=== PATIENT | female | born 1990 | race Caucasian/White ===

== ENCOUNTER 2017-09-16 20:02 | Emergency (ER) | payer OTHER ==
[~2017-09-16] VITALS: Ht 162.6 cm; Wt 66.0 kg
[~2017-09-16 20:02] MED LIST: BENZ100 PO; CIPR500T4 PO
[2017-09-16 20:31] VITALS: BP 106/56; PULSE 76; RESP 16; TEMP 98.6; O2SAT 99
--- NOTE | 2017-09-16 20:45 | PD ---
HPI Chief Complaint: Psychiatric Symptoms Time Seen by Provider: 20:34 Travel History International Travel<30 days: No Contact w/Intl Traveler<30days: No Traveled to known affect area: No History of Present Illness HPI 27-year-old female presents to the emergency room under [place] initiated by her family. Patient states her mother is paranoid schizophrenic and believes that she is going to kill herself. Patient broke up with her boyfriend last night and has been depressed. She denies suicidal or homicidal ideation at this time. States she is just depressed because she broke up with her boyfriend and her family is overreacting. Patient initially denies drug use but states she did use cocaine a few nights ago and that we'll probably show up in her drug test. Denies any medical complaints. No chronic medical conditions. Only takes control. PFSH Past Medical History ?: Unknown Social History Alcohol Use: Yes (OCC) Tobacco Use: Yes (2PPD) Substance Use: Yes (COCAINE) Allergies-Medications (Allergen,Severity, Reaction): Coded Allergies: penicillin G (Unverified Allergy, Intermediate, RASH, 09/16/17) Reported Meds & Prescriptions Reported Meds & Active Scripts Active No Active Prescriptions or Reported Medications Review of Systems Except as stated in HPI: all other systems reviewed are Neg Physical Exam Narrative GENERAL: Well-nourished, well-developed female in no acute distress. Afebrile. Ambulatory. SKIN: Focused skin assessment warm/dry. HEAD: Normocephalic. EYES: No scleral icterus. No injection or drainage. NECK: Supple, trachea midline. No JVD or lymphadenopathy. CARDIOVASCULAR: Regular rate and rhythm without murmurs, gallops, or rubs. RESPIRATORY: Breath sounds equal bilaterally. No accessory muscle use. PSYCHIATRIC: No delusional thought processes. No hallucinations. Depressed mood. Normal affect. Data Data Last Documented VS Vital Signs Date Time Temp Pulse Resp B/P (MAP) Pulse Ox O2 Delivery O2 Flow Rate FiO2 09/17/17 15:30 09/17/17 10:44 62 18 100 Room Air 09/16/17 20:31 98.6 Orders Orders Complete Blood Count With Diff (09/16/17 20:37) Comprehensive Metabolic Panel (09/16/17 20:37) Ed Urine Pregnancytest Poc (09/16/17 20:37) Psych Screen (09/16/17 20:37) Drug Screen, Random Urine (09/16/17 20:37) Potassium Chloride (Kcl) (09/16/17 22:15) Nicotine 14 Mg Patch.24 Hr (Habitrol 14 (09/16/17 22:30) Hydroxyzine Pamoate (Vistaril) (09/16/17 22:30) Diet Regular Basic (09/17/17 Breakfast) Diet Regular Basic (09/17/17 Lunch) Ed Discharge Order (09/17/17 14:55) Labs Laboratory Tests Test 09/16/17 20:49 White Blood Count 5.0 TH/MM3 Red Blood Count 4.12 MIL/MM3 Hemoglobin 13.6 GM/DL Hematocrit 40.2 % Mean Corpuscular Volume 97.5 FL Mean Corpuscular Hemoglobin 33.1 PG Mean Corpuscular Hemoglobin Concent 33.9 % Red Cell Distribution Width 12.3 % Platelet Count 260 TH/MM3 Mean Platelet Volume 8.0 FL Neutrophils (%) (Auto) 52.8 % Lymphocytes (%) (Auto) 33.7 % Monocytes (%) (Auto) 10.5 % Eosinophils (%) (Auto) 2.6 % Basophils (%) (Auto) 0.4 % Neutrophils # (Auto) 2.6 TH/MM3 Lymphocytes # (Auto) 1.7 TH/MM3 Monocytes # (Auto) 0.5 TH/MM3 Eosinophils # (Auto) 0.1 TH/MM3 Basophils # (Auto) 0.0 TH/MM3 CBC Comment DIFF FINAL Differential Comment Blood Urea Nitrogen 6 MG/DL Creatinine 0.90 MG/DL Random Glucose 102 MG/DL Total Protein 7.3 GM/DL Albumin 3.7 GM/DL Calcium Level 8.8 MG/DL Alkaline Phosphatase 46 U/L Aspartate Amino Transf (AST/SGOT) 10 U/L Alanine Aminotransferase (ALT/SGPT) 17 U/L Total Bilirubin 0.7 MG/DL Sodium Level 137 MEQ/L Potassium Level 3.2 MEQ/L Chloride Level 104 MEQ/L Carbon Dioxide Level 26.5 MEQ/L Anion Gap 7 MEQ/L Estimat Glomerular Filtration Rate 75 ML/MIN Urine Opiates Screen NEG Urine Barbiturates Screen NEG Urine Amphetamines Screen NEG Urine Benzodiazepines Screen NEG Urine Cocaine Screen POS Urine Cannabinoids Screen POS MDM Medical Decision Making Medical Screen Exam Complete: Yes Emergency Medical Condition: Yes Medical Record Reviewed: Yes Differential Diagnosis Drug use, substance abuse, substance use mood disorder, schizophrenia, depression, anxiety Narrative Course 27-year-old female presents to the emergency room under exparte order with [employer]. Patient states her family's overreacting to her recent depression. She is depressed because she broke up with her boyfriend yesterday. She denies suicidal or homicidal ideation at this time. No chronic medical conditions. Denies any medical complaints. Patient signed out to nighttime provider pending labs. Scripts No Active Prescriptions or Reported Meds Condition: Sindy Capps Sep 16, 2017 20:45
[2017-09-16 21:36] LABS: AUTOMATED NEUTROPHIL # 2.6 TH/MM3 (1.8-7.7); BASOPHIL % 0.4 % (0.0-2.0); EOSINOPHIL # 0.1 TH/MM3 (0-0.4); EOSINOPHIL % 2.6 % (0.0-4.0); HEMATOCRIT 40.2 % (35.0-46.0); HEMO FLAGS DIFF FINAL; LYMPH % 33.7 % (9.0-44.0); LYMPHOCYTE # 1.7 TH/MM3 (1.0-4.8); MEAN CELL VOLUME 97.5 FL (80.0-100.0); MEAN CORPUSCULAR HEMOGLOBIN 33.1 PG (27.0-34.0); MEAN CORPUSCULAR HGB CONC 33.9 % (32.0-36.0); MONO % 10.5 % (0.0-8.0); NEUT % 52.8 % (16.0-70.0); PLATELET COUNT 260 TH/MM3 (150-450); RED BLOOD COUNT 4.12 MIL/MM3 (4.00-5.30); RED CELL DISTRIBUTION WIDTH 12.3 % (11.6-17.2)
[2017-09-16 21:45] LABS: ANION GAP 7 MEQ/L (5-15); AST (GOT) 10 U/L (15-37); BICARBONATE 26.5 MEQ/L (21.0-32.0); BLOOD UREA NITROGEN 6 MG/DL (7-18); CHLORIDE 104 MEQ/L (98-107); GLOMERULAR FILTRATION RATE 75 ML/MIN (>89); POTASSIUM 3.2 MEQ/L (3.5-5.1); SODIUM (NA) 137 MEQ/L (136-145)
[2017-09-16 21:47] LABS: ALT (GPT) 17 U/L (10-53)
[2017-09-16 21:49] LABS: ALKALINE PHOSPHATASE 46 U/L (45-117); TOTAL BILIRUBIN ADULT 0.7 MG/DL (0.2-1.0)
[2017-09-16] MEDS ORDERED: POTASSIUM CHLORIDE 20 MEQ CONTROLLED RELEASE TAB PO ONE (22:15)
--- NOTE | 2017-09-16 22:15 | PD ---
Physical Exam Date Seen by Provider: Sep 16, 2017 Time Seen by Provider: 22:13 Data Data Last Documented VS Vital Signs Date Time Temp Pulse Resp B/P (MAP) Pulse Ox O2 Delivery O2 Flow Rate FiO2 09/16/17 20:31 98.6 76 16 106/56 (73) 99 Orders Orders Complete Blood Count With Diff (09/16/17 20:37) Comprehensive Metabolic Panel (09/16/17 20:37) Ed Urine Pregnancytest Poc (09/16/17 20:37) Psych Screen (09/16/17 20:37) Drug Screen, Random Urine (09/16/17 20:37) Potassium Chloride (Kcl) (09/16/17 22:15) Labs Laboratory Tests Test 09/16/17 20:49 White Blood Count 5.0 TH/MM3 Red Blood Count 4.12 MIL/MM3 Hemoglobin 13.6 GM/DL Hematocrit 40.2 % Mean Corpuscular Volume 97.5 FL Mean Corpuscular Hemoglobin 33.1 PG Mean Corpuscular Hemoglobin Concent 33.9 % Red Cell Distribution Width 12.3 % Platelet Count 260 TH/MM3 Mean Platelet Volume 8.0 FL Neutrophils (%) (Auto) 52.8 % Lymphocytes (%) (Auto) 33.7 % Monocytes (%) (Auto) 10.5 % Eosinophils (%) (Auto) 2.6 % Basophils (%) (Auto) 0.4 % Neutrophils # (Auto) 2.6 TH/MM3 Lymphocytes # (Auto) 1.7 TH/MM3 Monocytes # (Auto) 0.5 TH/MM3 Eosinophils # (Auto) 0.1 TH/MM3 Basophils # (Auto) 0.0 TH/MM3 CBC Comment DIFF FINAL Differential Comment Blood Urea Nitrogen 6 MG/DL Creatinine 0.90 MG/DL Random Glucose 102 MG/DL Total Protein 7.3 GM/DL Albumin 3.7 GM/DL Calcium Level 8.8 MG/DL Alkaline Phosphatase 46 U/L Aspartate Amino Transf (AST/SGOT) 10 U/L Alanine Aminotransferase (ALT/SGPT) 17 U/L Total Bilirubin 0.7 MG/DL Sodium Level 137 MEQ/L Potassium Level 3.2 MEQ/L Chloride Level 104 MEQ/L Carbon Dioxide Level 26.5 MEQ/L Anion Gap 7 MEQ/L Estimat Glomerular Filtration Rate 75 ML/MIN Urine Opiates Screen NEG Urine Barbiturates Screen NEG Urine Amphetamines Screen NEG Urine Benzodiazepines Screen NEG Urine Cocaine Screen POS Urine Cannabinoids Screen POS MDM Supervised Visit with HEMANTH: No Narrative Course This patient was initially evaluated by Sindy Styles PA-C. Please see her note for those details. Patient was signed out to me with lab work pending. No concerning abnormalities of the CBC. Potassium 8.0. Tox screen positive for cocaine and cannabinol lights. My exam the patient is alert, oriented. She is occasionally tearful. She denies somatic complaints. She was administered 40 mEq potassium chloride by mouth. She is medically cleared for psychiatric evaluation. Please see psych notes for disposition. Scripts No Active Prescriptions or Reported Meds Condition: Ilana Yusuf Sep 16, 2017 22:15
[2017-09-16] MEDS ORDERED: NICOTINE 14 MG/24 HR PATCH T-DERMAL ONE (22:30)
[2017-09-17 00:24] VITALS: BP_SYST 114; BP_SYST 117; BP_DIAS 54; BP_DIAS 58; PULSE 66; PULSE 91; RESP 18; RESP 20
[2017-09-17 05:31] VITALS: BP 100/55; PULSE 65; RESP 17; O2SAT 99
[2017-09-17 10:44] VITALS: BP 124/66; PULSE 62; RESP 18; O2SAT 100
--- NOTE | 2017-09-17 14:14 | PD ---
History of Present Illness Chief Complaint: Psychiatric Symptoms Time Seen by Provider: 14:00 Travel History International Travel<30 Days: No Contact w/Intl Traveler<30days: No Known affected area: No Legal Status Legal Status: [place] Parte Galvan Act Signed By: TAE Galvan Act Comment: [facility]09/16/17@[id number] History of Present Illness: 27-year-old female brought in under an ex parte order for evaluation. Apparently the patient has a history of drug abuse. She admits to this. The ex parte also indicates she has an alcohol problem and that she cuts herself and drives recklessly. She has reportedly spoken of suicide on multiple occasions. The ex parte also describes reckless financial dealings, problematic relationships, dangerous to herself, and previous treatment. Since her arrival in this emergency department, the patient has been calm, pleasant and cooperative. She adamantly denies any suicidal or homicidal ideation, plan or intent at this time. She does admit to the recreational use of cocaine, alcohol, etc. However, she feels she is capable of caring for herself, has a motor vehicle locally and a debit card. She is reportedly not homeless, capable of work, and wanting to leave. Patient's toxicology screen is positive for cocaine and cannabinoids. PFSH Past Medical History Medical History: Denies Significant Hx ?: Unknown Psychiatric History Psychiatric History Hx Psychiatric Treatment: BI- POLAR DISORDER, PATIENT DENIES. This physician sees no significant objective clinical evidence of bipolar disorder at this time. Patient relates the diagnosis of bipolar disorder was made when she was using cocaine in the past. This would invalidate the diagnosis of bipolar disorder. History of Inpatient Treatment: No Guns or firearms in home: No Social History Hx Alcohol Use: Yes (OCC) Hx Tobacco Use: Yes (2PPD) Hx Substance Use: Yes (COCAINE) Substance Use Type: Alcohol, Cocaine Allergies-Medications (Allergen,Severity, Reaction): Coded Allergies: penicillin G (Unverified Allergy, Intermediate, RASH, 09/16/17) Reported Meds & Prescriptions Reported Meds & Active Scripts Active No Active Prescriptions or Reported Medications Review of Systems Except as stated in HPI: all other systems reviewed are Neg Mental Status Examination Appearance: Appropriate Consciousness: Alert Orientation: x4 Motor Activity: Normal gait Speech: Unremarkable Language: Adequate Fund of Knowledge: Adequate Attention and Concentration: Adequate Memory: Unremarkable Mood: Appropriate Affect: Appropriate Thought Process & Associations: Intact Thought Content: Appropriate Hallucination Type: None Delusion Type: None Suicidal Ideation: No Suicidal Plan: No Suicidal Intention: No Homicidal Ideation: No Homicidal Plan: No Homicidal Intention: No Insight: Adequate Judgment: Adequate MDM Medical Decision Making Medical Record Reviewed: Yes Assessment/Plan Patient interviewed at bedside, medical record reviewed and case discussed with nurse Margaret. Patient does not meet criteria for Galvan act or involuntary psychiatric hospitalization at this time. Patient does have ongoing abuse issues with cocaine and possibly marijuana and alcohol. However, this facility is not licensed to treat those issues and the patient can present voluntarily at [facility] if she would like treatment. She is not under a [place] actor court order for drug and alcohol treatment. She denies suicidal or homicidal ideation, plan or intent and she is verbally and competently bassam for safety. Orders Orders Complete Blood Count With Diff (09/16/17 20:37) Comprehensive Metabolic Panel (09/16/17 20:37) Ed Urine Pregnancytest Poc (09/16/17 20:37) Psych Screen (09/16/17 20:37) Drug Screen, Random Urine (09/16/17 20:37) Potassium Chloride (Kcl) (09/16/17 22:15) Nicotine 14 Mg Patch.24 Hr (Habitrol 14 (09/16/17 22:30) Hydroxyzine Pamoate (Vistaril) (09/16/17 22:30) Diet Regular Basic (09/17/17 Breakfast) Diet Regular Basic (09/17/17 Lunch) Diet Regular Basic (09/17/17 Dinner) Results Vital Signs Date Time Temp Pulse Resp B/P (MAP) Pulse Ox O2 Delivery O2 Flow Rate FiO2 09/17/17 10:44 62 18 124/66 (85) 100 Room Air 09/17/17 05:31 65 17 100/55 (70) 99 Room Air 09/17/17 00:24 66 18 114/58 (76) 09/16/17 20:31 98.6 76 16 106/56 (73) 99 Laboratory Tests Test 09/16/17 20:49 White Blood Count 5.0 Red Blood Count 4.12 Hemoglobin 13.6 Hematocrit 40.2 Mean Corpuscular Volume 97.5 Mean Corpuscular Hemoglobin 33.1 Mean Corpuscular Hemoglobin Concent 33.9 Red Cell Distribution Width 12.3 Platelet Count 260 Mean Platelet Volume 8.0 Neutrophils (%) (Auto) 52.8 Lymphocytes (%) (Auto) 33.7 Monocytes (%) (Auto) 10.5 Eosinophils (%) (Auto) 2.6 Basophils (%) (Auto) 0.4 Neutrophils # (Auto) 2.6 Lymphocytes # (Auto) 1.7 Monocytes # (Auto) 0.5 Eosinophils # (Auto) 0.1 Basophils # (Auto) 0.0 CBC Comment DIFF FINAL Differential Comment Blood Urea Nitrogen 6 Creatinine 0.90 Random Glucose 102 Total Protein 7.3 Albumin 3.7 Calcium Level 8.8 Alkaline Phosphatase 46 Aspartate Amino Transf (AST/SGOT) 10 Alanine Aminotransferase (ALT/SGPT) 17 Total Bilirubin 0.7 Sodium Level 137 Potassium Level 3.2 Chloride Level 104 Carbon Dioxide Level 26.5 Anion Gap 7 Estimat Glomerular Filtration Rate 75 Urine Opiates Screen NEG Urine Barbiturates Screen NEG Urine Amphetamines Screen NEG Urine Benzodiazepines Screen NEG Urine Cocaine Screen POS Urine Cannabinoids Screen POS Diagnosis Primary Impression: Cocaine abuse Prescriptions No Active Prescriptions or Reported Meds Condition: Stable Felix Venegas MD Sep 17, 2017 14:14
== END 2017-09-17 17:35 | disposition home or self-care (01) ==
LOC: NEPJ 20:02
DX: F14.10 Cocaine abuse, uncomplicated (principal); F17.200 Nicotine dependence, unspecified, uncomplicated
CPT/HCPCS: 80053; 80307; 84703; 85025; 99284